=== PATIENT | female | born 1980 | race Caucasian/White ===

== ENCOUNTER 2020-01-04 01:13 | Emergency (ER) | payer BC ==
[2020-01-04] MEDS ORDERED: Ondansetron 4 MG/2 ML SDV IVPUSH ONE (01:48)
[2020-01-04] MEDS ORDERED: Sodium Chloride 0.9% 1,000 ML IV ONE (01:49)
[2020-01-04 02:36] VITALS: BP 120/82; PULSE 77
[2020-01-04 02:52] LABS: ANION GAP 14.6 mEq/L (7-13); CHLORIDE,CL 102 mmol/L (98-107); SODIUM,NA 139 mmol/L (136-145)
--- NOTE | 2020-01-04 02:54 | EDM.PDOC ---
ED HPI GENERAL MEDICAL PROBLEM - General Chief Complaint: Abdominal Pain Stated Complaint: ABDOMINAL PAIN Time Seen by Provider: 01/04/20 01:52 EXTRUDER OPERATOR HORIZONTAL Source of Information: Reports: Patient History Limitations: Reports: No Limitations - History of Present Illness INITIAL COMMENTS - FREE TEXT/NARRATIVE: onset on-off epiG pain since 8pm. ate homemade ice cream and soups. nauseous no vomiting. denies on BC. Treatments CHANGE MANAGEMENT: Reports: Heat Therapy, NSAIDS, Other (see below) Other Treatments CHANGE MANAGEMENT: tums and pepcid. 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 Home Meds: Home Meds norgestimate-ethinyl estradioL [[place]-L[place]ah 28 Tablet] 1 tab PO DAILY 01/04/20 [History] Past Medical History - Past Health History Medical/Surgical History: Denies Medical/Surgical History GALLEY HAND History: Reports: , Spontaneous Musculoskeletal History: Reports: Fracture Endocrine/Metabolic History: Reports: Other (See Below) Other Endocrine/Metabolic History: elevated one hour glucose tolerance test with this , 3 hour test within normal limits - Infectious Disease History Infectious Disease History: Reports: Chicken Pox - Past Surgical History HEENT Surgical History: Reports: Oral Surgery, Other (See Below) Social & Family History - Family History Family Medical History: Noncontributory - Tobacco Use Tobacco Use Status *Q: Never Tobacco User Second Hand Smoke Exposure: No - Caffeine Use Caffeine Use: Reports: Soda Other Caffeine Use: 1 can/day - Recreational Drug Use Recreational Drug Use: No ED ROS GENERAL - Review of Systems Review Of Systems: Comprehensive ROS is negative, except as noted in HPI. ED EXAM, GI/ABD - Physical Exam Exam: See Below Exam Limited By: No Limitations General Appearance: Alert, WD/WN, Mild Distress, Other (discomfort). No: Active Emesis Ears: Hearing Grossly Normal Throat/Mouth: Normal Voice, No Airway Compromise Head: Atraumatic Neck: Non-Tender, Full Range of Motion Respiratory/Chest: No Respiratory Distress Cardiovascular: Regular Rate, Rhythm GI/Abdominal Exam: Tender, Other (epiG region). No: Distended, Guarding, Rigid, Rebound (Female) Exam: Deferred Rectal (Female) Exam: Deferred Neurological: Alert, Oriented, Normal Cognition, Normal Gait, No Motor/Sensory Deficits Psychiatric: Normal Affect, Normal Mood Skin Exam: Warm, Dry, Normal Color Lymphatic: No Adenopathy Course - Vital Signs Last Recorded V/S: Last Vital Signs Temp 36.6 C 01/04/20 01:27 EXTRUDER OPERATOR H[employer]IZONTAL Pulse 77 01/04/20 01:27 EXTRUDER OPERATOR H[employer]IZONTAL Resp 14 01/04/20 01:27 EXTRUDER OPERATOR HORIZONTAL BP 120/82 01/04/20 01:27 EXTRUDER OPERATOR HORIZONTAL Pulse Ox 100 01/04/20 01:27 EXTRUDER OPERATOR H[employer]IZONTAL - Orders/Labs/Meds Orders: Active Orders 24 hr Category Date Time Status TROPONIN I [CHEM] Stat Lab 01/04/20 01:47 Ordered Sodium Chloride 0.9% [Normal Saline] 1,000 ml Med 01/04/20 01:49 Active IV .BOLUS Medication Orders Sodium Chloride (Normal Saline) 1,000 mls @ 500 mls/hr IV .BOLUS ONE Stop: 01/04/20 03:48 Last Admin: 01/04/20 01:54 EXTRUDER OPERATOR HORIZONTAL Dose: 500 mls/hr Documented by: CAESAR Labs: Laboratory Tests 01/04/20 01/04/20 01/04/20 Range/Units 01:25 EXTRUDER OPERATOR HORIZONTAL 01:25 EXTRUDER OPERATOR HORIZONTAL 01:25 EXTRUDER OPERATOR HORIZONTAL WBC 12.6 H (5.0-10.0) 10^3/uL RBC 4.50 (4.2-5.4) 10^6/uL Hgb 14.4 D (12.0-16.0) g/dL Hct 43.9 (37.0-47.0) % MCV 97.6 (80-100) fL MCH 32.0 (27.0-34.0) pg MCHC 32.8 L (33.0-35.0) g/dL Plt Count 263 D (150-450) 10^3/uL Neut % (Auto) 72.1 (42.2-75.2) % Lymph % (Auto) 19.3 L (20.5-50.1) % [place] % (Auto) 7.0 (2-8) % Eos % (Auto) 1.4 (1.0-3.0) % Baso % (Auto) 0.2 (0.0-1.0) % Sodium 139 (136-145) mmol/L Potassium 3.6 (3.5-5.1) mmol/L Chloride 102 (98-107) mmol/L Carbon Dioxide 26 (21-32) mmol/L Anion Gap 14.6 H (7-13) mEq/L BUN 16 (7-18) mg/dL Creatinine 0.98 (0.55-1.02) mg/dL Est Cr Clr Drug Dosing 79.29 mL/min Estimated GFR (MDRD) > 60 BUN/Creatinine Ratio 16.3 (No establ ref range) Glucose 109 H (74-99) mg/dL Lactic Acid 2.0 (0.4-2.0) mmol/L Calcium 8.9 (8.5-10.1) mg/dL Total Bilirubin 0.5 (0.2-1.0) mg/dL AST 20 (15-37) U/L ALT 33 (14-59) U/L Alkaline Phosphatase 46 (46-116) U/L Total Protein 7.2 (6.4-8.2) g/dL Albumin 3.5 (3.4-5.0) g/dL Globulin 3.7 Albumin/Globulin Ratio 0.9 Amylase 76 (25-115) U/L Lipase 136 (73-393) U/L SARS CoV-2 RNA Rapid PETROS (NEGATIVE) 01/04/20 Range/Units 01:25 EXTRUDER OPERATOR HORIZONTAL WBC (5.0-10.0) 10^3/uL RBC (4.2-5.4) 10^6/uL Hgb (12.0-16.0) g/dL Hct (37.0-47.0) % MCV (80-100) fL MCH (27.0-34.0) pg MCHC (33.0-35.0) g/dL Plt Count (150-450) 10^3/uL Neut % (Auto) (42.2-75.2) % Lymph % (Auto) (20.5-50.1) % [place] % (Auto) (2-8) % Eos % (Auto) (1.0-3.0) % Baso % (Auto) (0.0-1.0) % Sodium (136-145) mmol/L Potassium (3.5-5.1) mmol/L Chloride (98-107) mmol/L Carbon Dioxide (21-32) mmol/L Anion Gap (7-13) mEq/L BUN (7-18) mg/dL Creatinine (0.55-1.02) mg/dL Est Cr Clr Drug Dosing mL/min Estimated GFR (MDRD) BUN/Creatinine Ratio (No establ ref range) Glucose (74-99) mg/dL Lactic Acid (0.4-2.0) mmol/L Calcium (8.5-10.1) mg/dL Total Bilirubin (0.2-1.0) mg/dL AST (15-37) U/L ALT (14-59) U/L Alkaline Phosphatase (46-116) U/L Total Protein (6.4-8.2) g/dL Albumin (3.4-5.0) g/dL Globulin Albumin/Globulin Ratio Amylase (25-115) U/L Lipase (73-393) U/L SARS CoV-2 RNA Rapid PETROS Negative (NEGATIVE) Meds: Medications Generic Name Dose Route Start Last Admin Trade Name Freq PRN Reason Stop Dose Admin Sodium Chloride 1,000 mls @ 500 mls/hr 01/04/20 01:49 EXTRUDER OPERATOR HORIZONTAL 01/04/20 01:54 EXTRUDER OPERATOR HORIZONTAL Normal Saline IV 01/04/20 03:48 500 mls/hr .BOLUS ONE Administration Discontinued Medications Generic Name Dose Route Start Last Admin Trade Name Freq PRN Reason Stop Dose Admin Ondansetron HCl 4 mg 01/04/20 01:48 EXTRUDER OPERATOR H[employer]IZONTAL 01/04/20 01:55 EXTRUDER OPERATOR HORIZONTAL Zofran IVPUSH 01/04/20 01:49 EXTRUDER OPERATOR HORIZONTAL 4 mg ONETIME ONE Administration - Re-Assessments/Exams Free Text/Narrative Re-Assessment/Exam: 01/04/20 02:26 results discussed with pt who is feeling good now s/p zofran Departure - Departure Time of Disposition: 02:26 Disposition: Home, Self-Care 01 Condition: Good Clinical Impression: Abdominal pain Qualifiers: Abdominal location: epigastric Qualified Code(s): R10.13 - Epigastric pain - Discharge Information Instructions: Abdominal Pain, Adult, [id number] Forms: ED Department Discharge Additional Instructions: 1) avoid fatty foods 2) see clinic Sunday for GALL BLADDER ULTRASOUND 3) recheck if there is any change or concern Sepsis Event Note (ED) - Evaluation Sepsis Screening Result: No Definite Risk - Focused Exam Vital Signs: Vital Signs Temp Pulse Resp BP Pulse Ox 01/04/20 01:27 EXTRUDER OPERATOR HORIZONTAL 36.6 C 77 14 120/82 100 - My Orders Last 24 Hours: My Active Orders 01/04/20 01:47 TROPONIN I [CHEM] Stat 01/04/20 01:49 Sodium Chloride 0.9% [Normal Saline] 1,000 ml IV .BOLUS - Assessment/Plan Last 24 Hours: My Active Orders 01/04/20 01:47 TROPONIN I [CHEM] Stat 01/04/20 01:49 Sodium Chloride 0.9% [Normal Saline] 1,000 ml IV .BOLUS
== END 2020-01-04 02:30 | disposition home or self-care (01) ==
LOC: DL.ED 01:13
DX: R10.13 Epigastric pain (principal); Z20.828 Contact with and (suspected) exposure to other viral communicable diseases
CPT/HCPCS: 36415; 80053; 82150; 83605; 83690; 84484; 85025; 87635; 96374; 99284; J2405; J7030; U0002